=== PATIENT | female | born 2000 | race Caucasian/White ===

== ENCOUNTER 2025-08-18 11:01 | Observation (INO) ==
[2025-08-18] MEDS: SODIUM CHLORIDE 0.9% 1,000 ML IV STA ×2 (11:00→11:29)
--- NOTE | 2025-08-18 11:16 | ED Physician Documentation ---
History of Present Illness Stated complaint Stated Complaint: ABD PX/AMS Chief complaint Chief Complaint: Abd Pain History obtained from History obtained from: Patient and Family History of Present Illness Pain level max: 9 Pain level now: 9 Additonal information Additional information: Patient is a 25-year-old female who presents to the emergency department with sudden onset abdominal pain. She is approximately 9 weeks . She called her who is deployed in [place] and he called a friend to go bring her to the hospital. When the friend arrived she was outside on the concrete on the ground with altered mental status. EMS brought the patient to the emergency department. Adolfo Coma Scale Assess Eye opening: Spontaneous Verbal response: Oriented Motor response: Obeys Commands Review of Systems Status of ROS: unobtainable due to mental status Meds/Allgy Home Medications Ambulatory Orders Medication Instructions Recorded Confirmed ondansetron 4 mg disintegrating 4 mg PO Q8H PRN nausea and 08/18/25 tablet vomiting #10 tabs oxycodone 5 mg tablet 5 mg PO Q6H PRN postoperativ e pain 08/18/25 #10 tabs Allergies Allergies Allergy/AdvReac Type Severity Reaction Status Date / Time No Known Drug Allergies Allergy Verified 08/18/25 11:06 PFSH Active Problems All Active Problems (Updated 08/18/25 @ 17:53 by Anna Strong MD) Postoperative nausea (Acute) Post-op pain (Acute) Hemoperitoneum due to rupture of tubal ectopic (Acute) Ruptured ectopic (Acute) Medical History Medical History (Updated 08/18/25 @ 17:53 by Anna Strong MD) No pertinent past medical history No pertinent past medical history Social History Social History (Updated 08/18/25 @ 13:28 by Kenia Long CRNA) Smoking Status: Never smoker Living arrangement: At home Do you feel safe in your home environment?: Yes History of physical, verbal, emotional, or financial abuse?: No Exam Exam Vital Signs: Vital Signs x48h Temp Pulse Pulse Resp BP BP Pulse Ox 08/18/25 17:30 37.0 C 17 110/65 98 08/18/25 17:00 84 18 111/63 98 08/18/25 16:30 89 18 113/59 L 100 08/18/25 16:02 37.0 C 79 16 105/66 100 08/18/25 15:40 77 16 105/65 08/18/25 15:10 36.7 C 82 20 127/69 100 08/18/25 14:43 36.4 C L 68 13 110/53 L 100 08/18/25 14:30 75 16 104/61 100 08/18/25 14:15 36.2 C L 60 16 110/55 L 100 08/18/25 14:10 36.3 C L 65 14 102/58 L 100 08/18/25 14:00 36.3 C L 66 16 114/57 L 100 08/18/25 13:55 64 18 113/57 L 100 08/18/25 13:50 60 18 111/55 L 100 08/18/25 13:45 58 L 19 114/54 L 100 08/18/25 13:40 36.3 C L 74 16 105/67 100 08/18/25 11:43 75 18 111/60 08/18/25 11:36 77 17 105/65 100 08/18/25 11:32 88 16 111/64 100 08/18/25 11:24 86 16 111/64 08/18/25 11:10 105/69 98 08/18/25 11:06 36.4 C L 85 18 94/66 100 Constitutional pale, cool, slight bleeding from mouth HENMT normocephalic and head/scalp atraumatic slight bleeding from the R nare and the R upper gingiva Eyes PERRL and EOMs intact bilaterally Neck/C-Spine trachea midline Respiratory breath sounds equal bilaterally, normal respiratory effort and clear to auscultation bilaterally Cardiovascular normal heart rate noted and regular rhythm noted Gastrointestinal Diffusely tender to palpation. Positive guarding. Back/Pelvis no thoracic spine tenderness and no lumbar spine tenderness Neurology GCS 15 Patient is GCS 15, but very drowsy, often times questions will have to be repeated before she will give an answer. Skin skin color normal Results Vitals Vitals: Vital Signs - 24 hr 08/18/25 11:06 08/18/25 11:10 08/18/25 11:24 Temperature 36.4 C L Temperature Source Temporal Artery Scan Pulse Rate 85 86 Pulse Rate [Monitoring electrodes] Respiratory Rate 18 16 Blood Pressure 94/66 105/69 111/64 Blood Pressure [Left] O2 Saturation 100 98 O2 Source Room air Room air Room air Sedation scale Pain Intensity 10 10 10 Pain Intensity [Abdomen] 08/18/25 11:32 08/18/25 11:36 08/18/25 11:43 Temperature Temperature Source Pulse Rate 88 77 75 Pulse Rate [Monitoring electrodes] Respiratory Rate 16 17 18 Blood Pressure 111/64 105/65 111/60 Blood Pressure [Left] O2 Saturation 100 100 O2 Source Room air Room air Room air Sedation scale Pain Intensity 10 10 10 Pain Intensity [Abdomen] 08/18/25 11:56 08/18/25 13:40 08/18/25 13:40 Temperature 36.3 C L Temperature Source Pulse Rate 74 Pulse Rate [Monitoring electrodes] Respiratory Rate 16 Blood Pressure 105/67 Blood Pressure [Left] O2 Saturation 100 O2 Source Sedation scale Pain Intensity 10 8 Pain Intensity [Abdomen] 08/18/25 13:45 08/18/25 13:50 08/18/25 13:55 Temperature Temperature Source Pulse Rate 58 L 60 64 Pulse Rate [Monitoring electrodes] Respiratory Rate 19 18 18 Blood Pressure 114/54 L 111/55 L 113/57 L Blood Pressure [Left] O2 Saturation 100 100 100 O2 Source Sedation scale Pain Intensity Pain Intensity [Abdomen] 08/18/25 14:00 08/18/25 14:00 08/18/25 14:10 Temperature 36.3 C L Temperature Source Pulse Rate 66 Pulse Rate [Monitoring electrodes] Respiratory Rate 16 Blood Pressure 114/57 L Blood Pressure [Left] O2 Saturation 100 O2 Source Sedation scale Pain Intensity 8 8 Pain Intensity [Abdomen] 08/18/25 14:10 08/18/25 14:15 08/18/25 14:20 Temperature 36.3 C L 36.2 C L Temperature Source Pulse Rate 65 60 Pulse Rate [Monitoring electrodes] Respiratory Rate 14 16 Blood Pressure 102/58 L 110/55 L Blood Pressure [Left] O2 Saturation 100 100 O2 Source Sedation scale Pain Intensity 8 Pain Intensity [Abdomen] 08/18/25 14:30 08/18/25 14:43 08/18/25 15:10 Temperature 36.4 C L 36.7 C Temperature Source Temporal Artery Scan Pulse Rate 75 68 Pulse Rate [Monitoring electrodes] 82 Respiratory Rate 16 13 20 Blood Pressure 104/61 110/53 L Blood Pressure [Left] 127/69 O2 Saturation 100 100 100 O2 Source Room air Sedation scale 1-Arouses easily Pain Intensity 3 Pain Intensity [Abdomen] 08/18/25 15:40 08/18/25 15:42 08/18/25 16:02 Temperature 37.0 C Temperature Source Temporal Artery Scan Pulse Rate Pulse Rate [Monitoring electrodes] 77 79 Respiratory Rate 16 16 Blood Pressure Blood Pressure [Left] 105/65 105/66 O2 Saturation 100 O2 Source Room air Room air Sedation scale 0-Fully awake 0-Fully awake Pain Intensity 3 Pain Intensity [Abdomen] 3 08/18/25 16:30 08/18/25 17:00 08/18/25 17:23 Temperature Temperature Source Pulse Rate Pulse Rate [Monitoring electrodes] 89 84 Respiratory Rate 18 18 Blood Pressure Blood Pressure [Left] 113/59 L 111/63 O2 Saturation 100 98 O2 Source Room air Room air Sedation scale 0-Fully awake 0-Fully awake Pain Intensity 3 3 3 Pain Intensity [Abdomen] 08/18/25 17:30 08/18/25 17:38 Temperature 37.0 C Temperature Source Temporal Artery Scan Pulse Rate Pulse Rate [Monitoring electrodes] Respiratory Rate 17 Blood Pressure Blood Pressure [Left] 110/65 O2 Saturation 98 O2 Source Sedation scale 0-Fully awake Pain Intensity 8 8 Pain Intensity [Abdomen] Oxygen O2 Source Room air EKG (time done) 1151: EKG releavant findings:: EKG personally interpreted by author of this note. Relevant findings are: Rate: Other (82 bpm. Sinus rhythm. Normal NM interval, normal QRS, normal ST segments. Normal EKG) Labs Labs: Laboratory Tests 08/18/25 08/18/25 08/18/25 11:27 11:35 14:22 WBC 16.7 H 18.7 H RBC 3.26 L 4.17 L Hgb 9.5 L 11.6 L Hct 29.3 L 35.8 L MCV 89.9 85.9 MCH 29.1 27.8 MCHC 32.4 32.4 RDW 12.1 16.4 H Plt Count 322 250 MPV 10.1 10.0 Neut # (Auto) 13.2 H Lymph # (Auto) 2.7 [place] # (Auto) 0.6 Eos # (Auto) 0.0 Baso # (Auto) 0.1 Absolute Nucleated RBC 0.00 Nucleated RBC % 0.0 Sodium 137 136 Potassium 3.2 L 5.1 H Chloride 107 109 Carbon Dioxide 19 L 21 Anion Gap 11.0 6.0 BUN 8 8 Creatinine 0.8 0.7 Estimated GFR (MDRD) 87 L 102 Glucose 115 H 133 H Calcium 8.1 L 7.6 L Total Bilirubin 0.3 0.4 AST 12 13 ALT 8 L 9 L Alkaline Phosphatase 36 L 37 L Total Protein 6.2 L 6.1 L Albumin 3.7 3.6 Globulin 2.5 2.5 Albumin/Globulin Ratio 1.5 1.4 Beta HCG, Quant 74726.6 Blood Type O POSITIVE Blood Type Recheck O POSITIVE Antibody Screen NEGATIVE Crossmatch IS Only See Detail PD Medical Decision Making ED course Complexity details: reviewed results, re-evaluated patient, considered differential and d/w patient ED course: Patient is a 25-year-old female who presents to the emergency department with ab dominal pain, 9 weeks ,. Have likely a syncopal event today at home and fell onto the sidewalk. Has peritoneal signs on her abdomen upon arrival. I immediately placed an ultrasound probe which showed free fluid throughout the abdomen. There also appears to be a left-sided ectopic , uterus identified and the gestational sac appears outside the uterus. At that point OB was called, Dr. Strong, she came and evaluated the patient. IV fluids were given. Head CT, cervical spine CT maxillofacial CT were negative for acute findings. Patient was taken to the operating room. This document was made in part using voice recognition software. While efforts are made to proofread this document, sound alike and grammatical errors may occur. Discharge Plan Discharge Patient Disposition: ED Transfer to [facility] Condition: Serious Clinical Impression: Ruptured ectopic , Hemoperitoneum due to rupture of tubal ectopic Interventions: ED Admission Assessment Last Done: 08/18/25 12:06 Vitals documented within 30 minutes of discharge?: Yes
[2025-08-18] MEDS ORDERED: ROCURONIUM 50 MG/5 ML VIAL ONE ×2 (11:40→12:42)
[2025-08-18] MEDS ORDERED: PROPOFOL 200 MG/20 ML VIAL IVP ONE (11:40)
[2025-08-18] MEDS ORDERED: fentaNYL 100 MCG/2 ML VIAL ONE ×2 (11:40→14:20)
[2025-08-18 11:41] LABS: HCT - HEMATOCRIT 29.3 % (37.0-47.0); HGB - HEMOGLOBIN 9.5 g/dL (12.0-16.0); MEAN PLATELET VOLUME 10.1 fL (7.9-10.8); NRBC ABSOLUTE COUNT (AUTO) 0.00 x10^3/uL; NUCLEATED RED BLOOD CELLS AUTO 0.0 /100WBC; PLT - PLATELET COUNT 322 10^3/uL (130-450); RED CELL DISTRIBUTION WIDTH 12.1 % (12.0-15.0)
--- NOTE | 2025-08-18 11:57 | HISTORY & PHYSICAL EXAMINATION ---
History of Present Illness History of Present Illness HPI Comment/Other: Yessy is a 25 yo who presents to the ED via ambulance after loss of consiousness at home. Bedside ultrasound in the ED consistent with ectopic and hemoperitoneum. Yessy reports + abdominal pain, sudden starting around 9AM this morning. She reports knowing she was with first appointment later this month, has not had any care or ultrasounds so far. Meds/Allgy Home Medications Ambulatory Orders Medication Instructions Recorded Confirmed No Known Home Medications 08/18/2503/07 Allergies Allergies Allergy/AdvReac Type Severity Reaction Status Date / Time No Known Drug Allergies Allergy Verified 08/18/25 11:06 PFSH Active Problems All Active Problems (Updated 08/18/25 @ 11:34 by Zora Melvin, RN, BSN) Hemoperitoneum due to rupture of tubal ectopic (Acute) Ruptured ectopic (Acute) Medical History Medical History (Updated 08/18/25 @ 11:34 by Zora Melvin, RN, BSN) No pertinent past medical history No pertinent past medical history Social History Social History (Updated 08/18/25 @ 11:34 by Zora Melvin, RN, BSN) Living arrangement: At home Do you feel safe in your home environment?: Yes History of physical, verbal, emotional, or financial abuse?: No POLST Patient has POLST: No Exam Exam Vital Signs: Vital Signs x48h Temp Pulse Resp BP Pulse Ox 08/18/25 11:43 75 18 111/60 08/18/25 11:36 77 17 105/65 100 08/18/25 11:32 88 16 111/64 100 08/18/25 11:24 86 16 111/64 08/18/25 11:10 105/69 98 08/18/25 11:06 97.5 F L 85 18 94/66 100 Constitutional Alert, cervical collar in place. Dried blood around mouth. No active bleeding. Respiratory normal respiratory effort Gastrointestinal distended, tender to palpation with + rebound/guarding. Genitourinary Deferred Psychiatry cooperative Conclusion/Plan Problem List (1) Hemoperitoneum due to rupture of tubal ectopic : (2) Ruptured ectopic : Plan - I discussed findings on bedside ultrasound with Yessy with suspected left ectopic and positive hemoperiteoneum, concerning for ruptured ectopic . Recommended that we proceed with diagnostic laparoscopy, removal of ectopic , possible unilateral salpignectomy. Risks/benefits included risks of nontreatment were reviewed. Risks of surgery discussed including pain, bleeding (possibly requiring a blood transfusion), infection, damage to nearby structures (including but not limited to bowel, bladder, ureters, blood vessels), conversion to open procedure with larger abdominal incision, . Consent was signed. With Yessy's permission, her was updated on her status and plan via phone call - he is currently in [place]. Lab Results Lab results reviewed: Yes 08/18/25 11:27
[2025-08-18 11:58] LABS: ALT ALANINE AMINOTRANSFERASE 8.0 IU/L (10-60); AST ASPARTATE AMINOTRANSFERASE 12.0 IU/L (10-42); BUN - BLOOD UREA NITROGEN 8.0 mg/dL (6-20); CARBON DIOXIDE - CO2 19.0 mmol/L (21-32); CREATININE 0.8 mg/dL (0.6-1.3); GFR - MDRD 87.0 (>89)
--- NOTE | 2025-08-18 12:02 | CT Report ---
PROCEDURE: CT Head WO INDICATIONS: syncope, head inury TECHNIQUE: CT of the head was performed, without intravenous contrast. Reformats: Coronal and sagittal. For radiation dose reduction, the following was used: automated exposure control, adjustment of mA and/or kV according to patient size. COMPARISON: None. FINDINGS: Image quality: Diagnostic. CSF spaces: Basal cisterns are patent. No extra-axial fluid collections. Ventricles are normal in size and shape. Brain: No midline shift. No intracranial mass effect or hemorrhage. [place]- white matter interface is normal. Skull and face: Calvarium and visualized facial bones are intact, without suspicious lesions. Sinuses: Visualized sinuses and mastoids are clear. IMPRESSION: No acute intracranial pathology. Reviewed by: Piero Cervantes MD on 08/18/2025 11:59 AM [facility] Approved by: Piero Cervantes MD on 08/18/2025 11:59 AM [facility] Station ID: [id number]
--- NOTE | 2025-08-18 12:02 | CT Report ---
PROCEDURE: CT Maxillofacial WO INDICATIONS: syncope, facial pain TECHNIQUE: CT of the face was performed, without intravenous contrast. Reformats: Coronal and sagittal. For radiation dose reduction, the following was used: automated exposure control, adjustment of mA and/or kV according to patient size. COMPARISON: None. FINDINGS: Image quality: Diagnostic. Soft tissues: No edema, masses, or fluid collections. No enlarged lymph nodes. Vascular: Visualized vascular structures appear patent throughout. Bony vascular foramina and canals appear normal. Bones: Facial bones appear intact, without fractures, erosions, or destruction. Visualized portions of the skull base and auditory canals also appear normal. Sinuses: Mild mucosal thickening in inferior portion of right maxillary sinus is seen. Rest of the sinuses are aerated without fluid levels, mucosal thickening, or mucoceles. Mastoid air cells are aerated. IMPRESSION: 1. No acute facial bone fracture. 2. Mild right maxillary sinus mucosal thickening. 3. No gross facial soft tissue abnormalities. 4. Bilateral orbital andrew and orbital globes are intact. Reviewed by: Piero Cervantes MD on 08/18/2025 11:59 AM [facility] Approved by: Piero Cervantes MD on 08/18/2025 11:59 AM PST Station ID: [id number]
--- NOTE | 2025-08-18 12:03 | CT Report ---
PROCEDURE: CT Cervical Spine WO INDICATIONS: syncope, neck pain TECHNIQUE: Noncontrast images acquired from the skull base to the T4 level. Sagittal and coronal reformats were then constructed. For radiation dose reduction, the following was used: automated exposure control, adjustment of mA and/or kV according to patient size. COMPARISON: None. FINDINGS: Image quality: Excellent. Bones: No fractures or dislocations. Visualized superior ribs are intact. Soft tissues: Prevertebral soft tissues are normal in thickness. No paravertebral hematomas. No apical pneumothoraxes. IMPRESSION: No acute, displaced fracture or traumatic subluxation. Reviewed by: Piero Cervantes MD on 08/18/2025 12:00 PM [facility] Approved by: Piero Cervantes MD on 08/18/2025 12:00 PM [facility] Station ID: [id number]
[2025-08-18] MEDS ORDERED: GABAPENTIN 400 MG CAPSULE PO ONE (12:35)
[2025-08-18] MEDS ORDERED: DEXAMETHASONE 4 MG/ML VIAL ONE (13:07)
[2025-08-18] MEDS ORDERED: ONDANSETRON 4 MG/2 ML VIAL ONE (13:07)
[2025-08-18] MEDS ORDERED: SUGAMMADEX 200 MG/2 ML VIAL IVP ONE (13:23)
[2025-08-18] MEDS ORDERED: ACETAMINOPHEN 1,000 MG/100 ML 1,000 MG/100 ML BAG IV ONE (13:25)
--- NOTE | 2025-08-18 13:28 | ANESTHESIA PROCEDURE NOTE ---
Pre-Anesthesia VS, & Labs Diagnosis Surgical Diagnosis:: Ruptured ectopic Procedure Procedure: Diagnostic laparoscopy, salpingectomy Vitals Vital Signs: Temp Pulse Resp BP Pulse Ox 36.4 C L 75 18 111/60 100 08/18/25 11:06 08/18/25 11:43 08/18/25 11:43 08/18/25 11:43 08/18/25 11:36 NPO NPO: >8 hours Is Patient ?: Yes Lab Results Current Lab Results: Laboratory Tests 08/18/25 11:35: Blood Type O POSITIVE, Antibody Screen NEGATIVE, Crossmatch IS Only See Detail 08/18/25 11:27: WBC 16.7 H, RBC 3.26 L, Hgb 9.5 L, Hct 29.3 L, MCV 89.9, MCH 29.1, MCHC 32.4, RDW 12.1, Plt Count 322, MPV 10.1, Neut # (Auto) 13.2 H, Lymph # (Auto) 2.7, [place] # (Auto) 0.6, Eos # (Auto) 0.0, Baso # (Auto) 0.1, Absolute Nucleated RBC 0.00, Nucleated RBC % 0.0, Sodium 137, Potassium 3.2 L, Chloride 107, Carbon Dioxide 19 L, Anion Gap 11.0, BUN 8, Creatinine 0.8, Estimated GFR (MDRD) 87 L, Glucose 115 H, Calcium 8.1 L, Total Bilirubin 0.3, AST 12, ALT 8 L, Alkaline Phosphatase 36 L, Total Protein 6.2 L, Albumin 3.7, Globulin 2.5, Albumin/Globulin Ratio 1.5, Beta HCG, Quant 01371.6, Blood Type Recheck O POSITIVE Lab results reviewed: Yes 08/18/25 11:27 08/18/25 11:27 Meds/Allgy Home Medications Ambulatory Orders Medication Instructions Recorded Confirmed No Known Home Medications 08/18/2503/07 Allergies Allergies Allergy/AdvReac Type Severity Reaction Status Date / Time No Known Drug Allergies Allergy Verified 08/18/25 11:06 PFSH Active Problems All Active Problems (Updated 08/18/25 @ 11:34 by Zora Melvin, RN, BSN) Hemoperitoneum due to rupture of tubal ectopic (Acute) Ruptured ectopic (Acute) Medical History Medical History (Updated 08/18/25 @ 11:34 by Zora Melvin, RN, BSN) No pertinent past medical history No pertinent past medical history Social History Social History (Updated 08/18/25 @ 11:34 by Zora Melvin, RN, BSN) Smoking Status: Never smoker Living arrangement: At home Do you feel safe in your home environment?: Yes History of physical, verbal, emotional, or financial abuse?: No POLST Patient has POLST: No POLST CPR Status: Attempt Resuscitation (CPR) Level of Medical Intervention: Full Treatment Anesthesia Exam (Expanded) Exam General: Oriented x3, Cooperative and Mild distress Dental: 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 (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, 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
--- NOTE | 2025-08-18 13:28 | OPERATIVE REPORT ---
Operative Report General Procedure Data: Operation Date: 08/18/25 12:15 Proposed Procedures p Exploratory Laparotomy(Not Applicable) - Anna Strong MD Actual Procedures p LAPAROSCOPIC LEFT SALPHINGECTOMY(Not Applicable) - Anna Strong MD Pre-Op Diagnosis: RUPTURED ECTOPIC , HEMOPERITONEUM Anesthesia Type General Case Staff Anesthesia Provider: Kenia Long Assisting Provider: Faith Garcia Case Times Procedure Start: 08/18/25 12:11 Procedure End: 08/18/25 13:23 Time out: 08/18/25 12:10 Other Other Information/Narrative: OPERATIVE REPORT Date of procedure: 08/18/25 Surgeon: Anna Strong MD Assistants: MD Dr. Jose Monaco was necessary as an trust administrative assistant for the entire procedure for adequate retraction and visualization, to shorten operative time, and to lower the risk of surgical injury. Pre-Op Diagnosis: Ruptured ectopic , hemoperitoneum Post-Op Diagnosis: Same Procedures: Laparoscopic left salpingectomy Findings: - On speculum exam, NEFG, normal appearing vaginal mucosa and cervix. - On laparoscopy, large volume hemoperitoneum of 1350cc. Large round dilation of the proximal left fallopian tube which was actively bleeding, suspect ruptured left tubal ectopic . Uterus, bilateral ovaries, and right fallopian tube were normal in appearance. Liver with smooth edge. Appendix not visualized. Specimens: left fallopian tube Anesthesia Technique: general Estimated Blood Loss: 50cc intraoperatively Blood Replacement: 2 units pRBCs Fluid Replacement: 1300cc Drains: kinsey catheter, drained 400cc of clear yellow urine, removed at completion of procedure. Complications: none Condition: stable Description of Procedure Once adequate general anesthesia was obtained, the patient was placed in the dorsolithotomy position with arms tucked and prepped and draped in the usual fashion. Kinsey catheter was placed by the RN. A speculum was inserted into the vagina and the anterior lip of the cervix grasped with a tenaculum. An acorn uterine manipulator was placed. Gloves were changed. 0.25% Marcaine with epinephrine was injected prior to all skin incisions. A horizontal skin incision was made above the umbilicus. The abdominal wall was elevated and the 5 mm trocar with the 5 mm laparoscopic camera was introduced into the abdomen. Two additional 5mm ports were placed under direct visualization in the left and right lower quadrants. Hemoperitoneum was evac uated and the above findings were observed. The left fallopian tube was transected at its junction at the uterus and the ectopic /proximal portion of the tube was removed with the Ligasure to achieve hemostasis. The remaining fimbreated end of the tube was removed with the ligasure. The skin incision of the left lower quandrant port site was extended and a 12mm trocar placed under direct visualization. The specimen was placed in an endocatch bag and removed from the abdomen under direct visualization. The areas of dissection were examined and hemostasis noted. The remaining blood and clot was removed from the abdomen. The left lower quadrant trocar was removed and the fascia closed using the fascia closed using the Lanre-Davis fascial closure device. The gas was all owed to escape the abdomen and the remaining trocars were removed. The skin incisions were closed with 4-0 monocryl in a subcuticular fashion followed by Dermabond. The acorn uterine manipulator was removed intact and hemostasis noted. The kinsey catheter was removed. The patient was awakened and taken to the recovery room in good condition. Anna Strong MD
[2025-08-18] MEDS ORDERED: HYDROmorphone 0.5 MG/0.5 ML SYRINGE ONE ×2 (13:39→13:57)
[2025-08-18] MEDS: HYDROmorphone 0.5 MG/0.5 ML SYRINGE IVP PRN (13:40)
[2025-08-18] MEDS ORDERED: KETOROLAC 15 MG/ML VIAL ONE (13:57)
[2025-08-18] MEDS: KETOROLAC 15 MG/ML VIAL IVP ONE (14:00)
[2025-08-18] MEDS ORDERED: NALOXONE 0.4 MG/ML VIAL IVP PRN (14:05)
[2025-08-18] MEDS ORDERED: ePHEDrine 50 MG/ML VIAL IVP PRN (14:05)
[2025-08-18] MEDS ORDERED: METOCLOPRAMIDE 10 MG/2 ML VIAL IVP PRN (14:05)
[2025-08-18] MEDS ORDERED: MORPHINE 2 MG/ML CARPUJECT IVP PRN (14:05)
[2025-08-18] MEDS ORDERED: ONDANSETRON 4 MG/2 ML VIAL IVP PRN (14:05)
[2025-08-18] MEDS ORDERED: ATROPINE ABBOJECT 1 MG/10 ML SYRINGE IVP PRN (14:05)
[2025-08-18] MEDS: LACTATED RINGERS 1,000 ML IV PRN (14:10)
--- NOTE | 2025-08-18 14:11 | ANESTHESIA POST OP EVALUATION ---
Anesthesia Post Eval Post Anesthesia Eval Vitals: Last Vital Signs Temp 36.3 C L 08/18/25 13:40 Pulse 66 08/18/25 14:00 Resp 16 08/18/25 14:00 BP 114/57 L 08/18/25 14:00 Pulse Ox 100 08/18/25 14:00 CV Function Including HR & BP: Stable Pain Control: Satisfactory Nausea & Vomiting: Negative Mental Status: Baseline Respiratory Status: Airway Patent Hydration Status: Satisfactory Anesthesia Complications: None
[2025-08-18] MEDS ORDERED: HYDROmorphone 0.5 MG/0.5 ML SYRINGE IVP PRN (14:16)
[2025-08-18] MEDS: fentaNYL 100 MCG/2 ML VIAL IVP PRN (14:20)
[2025-08-18 14:28] LABS: HCT - HEMATOCRIT 35.8 % (37.0-47.0); HGB - HEMOGLOBIN 11.6 g/dL (12.0-16.0); MEAN PLATELET VOLUME 10.0 fL (7.9-10.8); PLT - PLATELET COUNT 250.0 10^3/uL (130-450); RED CELL DISTRIBUTION WIDTH 16.4 % (12.0-15.0)
[2025-08-18 14:42] LABS: ALT ALANINE AMINOTRANSFERASE 9.0 IU/L (10-60); AST ASPARTATE AMINOTRANSFERASE 13.0 IU/L (10-42); BUN - BLOOD UREA NITROGEN 8.0 mg/dL (6-20); CARBON DIOXIDE - CO2 21.0 mmol/L (21-32); CREATININE 0.7 mg/dL (0.6-1.3); GFR - MDRD 102.0 (>89)
[2025-08-18] MEDS ORDERED: LACTATED RINGERS 1,000 ML IV SCH (15:00)
[2025-08-18] MEDS: ONDANSETRON 4 MG/2 ML VIAL IVP PRN (17:03)
[2025-08-18] MEDS: ACETAMINOPHEN 500 MG TABLET PO ONE (17:23)
[2025-08-18] MEDS: oxyCODONE 5 MG TABLET PO PRN (17:38)
--- NOTE | 2025-08-18 19:11 | PROVIDER PROGRESS NOTE ---
Subjective Prog Note Date Prog Note Date: 08/18/25 Prog Note Time: 19:06 Subjective Subjective: Yessy was seen at bedside this evening. Pain at 3/10 while lying in bed, but when sitting forward very uncomfortable. She has wanted to avoid oxycodone as she is afraid it will make her sleepy. She has not yet been out of bed to ambulate. Woule like to try to eat something. [place] [email or web address]. Current Medications Current Medications Current Medications: Current Medications Generic Name Dose Route Start Last Admin Trade Name Freq PRN Reason Stop Dose Admin Acetaminophen 1,000 mg 08/18/25 18:56 Acetaminophen 500 Mg Tablet PO Q6H PRN Moderate Pain (Level 4-6) Gabapentin 400 mg 08/18/25 19:01 Gabapentin 400 Mg Capsule PO TID PRN postoperative pain Hydromorphone HCl 0.5 mg 08/18/25 14:16 Hydromorphone 0.5 Mg/0.5 Ml Syringe IVP Q30M PRN Severe Breakthrough pain(7-10) Lactated Ringer's 1,000 mls @ 0 mls/hr 08/18/25 12:35 08/18/25 14:10 Lr IV 100 mls/hr .Q0M PRN Administration preop TKO Ibuprofen 600 mg 08/18/25 18:56 Ibuprofen 600 Mg Tablet PO Q6HR PRN Moderate Pain (Level 4-6) Ondansetron HCl 4 mg 08/18/25 14:16 08/18/25 17:03 Ondansetron 4 Mg/2 Ml Vial IVP 4 mg Q6HR PRN Administration Nausea / Vomiting Oxycodone HCl 5 - 10 mg 08/18/25 14:16 08/18/25 17:38 Oxycodone 5 Mg Tablet PO 5 mg Q4HR PRN Administration Moderate Pain (Level 4-6) Objective Vital Signs/Intake & Output Vital Signs: Vital Signs x48h Temp Pulse Pulse Resp BP BP Pulse Ox 08/18/25 17:30 98.6 F 17 110/65 98 08/18/25 17:00 84 18 111/63 98 08/18/25 16:30 89 18 113/59 L 100 08/18/25 16:02 98.6 F 79 16 105/66 100 08/18/25 15:40 77 16 105/65 08/18/25 15:10 98.1 F 82 20 127/69 100 08/18/25 14:43 97.5 F L 68 13 110/53 L 100 08/18/25 14:30 75 16 104/61 100 08/18/25 14:15 97.2 F L 60 16 110/55 L 100 08/18/25 14:10 97.3 F L 65 14 102/58 L 100 08/18/25 14:00 97.3 F L 66 16 114/57 L 100 08/18/25 13:55 64 18 113/57 L 100 08/18/25 13:50 60 18 111/55 L 100 08/18/25 13:45 58 L 19 114/54 L 100 08/18/25 13:40 97.3 F L 74 16 105/67 100 08/18/25 11:43 75 18 111/60 08/18/25 11:36 77 17 105/65 100 08/18/25 11:32 88 16 111/64 100 08/18/25 11:24 86 16 111/64 08/18/25 11:10 105/69 98 Intake & Output: Intake & Output 08/15/25 08/16/25 08/17/25 08/18/25 22:59 23:59 23:59 23:59 Intake Total 7460 / 7460 Output Total 800 / 800 Balance 6660 / 6660 Weight (kg) 155 lb 13.869 oz Objective Comments/Other: Gen: NAD, lying in bed. CV: RRR Resp: CTAB Abd: non-distended, TTP. No rebound/guarding. Laparoscopic incisions with dermabond in place. Ext: no LE edema, SCDs in place. Lab Results 08/18/25 14:22 08/18/25 14:22 Other Labs: Lab Results x24hrs 08/18/25 08/18/25 08/18/25 Range/Units 14:22 11:35 11:27 WBC 18.7 H 16.7 H (4.8-10.8) x10^3/uL RBC 4.17 L 3.26 L (4.20-5.40) 10^6/uL Hgb 11.6 L 9.5 L (12.0-16.0) g/dL Hct 35.8 L 29.3 L (37.0-47.0) % MCV 85.9 89.9 (81.0-99.0) fL MCH 27.8 29.1 (27.0-31.0) pg MCHC 32.4 32.4 (32.0-36.0) g/dL RDW 16.4 H 12.1 (12.0-15.0) % Plt Count 250 322 (130-450) 10^3/uL MPV 10.0 10.1 (7.9-10.8) fL Neut # (Auto) 13.2 H (1.5-6.6) 10^3/uL Lymph # (Auto) 2.7 (1.5-3.5) 10^3/uL Powell # (Auto) 0.6 (0.0-1.0) 10^3/uL Eos # (Auto) 0.0 (0.0-0.7) 10^3/uL Baso # (Auto) 0.1 (0.0-0.1) 10^3/uL Absolute Nucleated RBC 0.00 x10^3/uL Nucleated RBC % 0.0 /100WBC Sodium 136 137 (135-145) mmol/L Potassium 5.1 H 3.2 L (3.5-4.5) mmol/L Chloride 109 107 (101-111) mmol/L Carbon Dioxide 21 19 L (21-32) mmol/L Anion Gap 6.0 11.0 (6-13) BUN 8 8 (6-20) mg/dL Creatinine 0.7 0.8 (0.6-1.3) mg/dL Estimated GFR (MDRD) 102 87 L (>89) Glucose 133 H 115 H (74-104) mg/dL Calcium 7.6 L 8.1 L (8.5-10.3) mg/dL Total Bilirubin 0.4 0.3 (0.2-1.0) mg/dL AST 13 12 (10-42) IU/L ALT 9 L 8 L (10-60) IU/L Alkaline Phosphatase 37 L 36 L (42-121) IU/L Total Protein 6.1 L 6.2 L (6.4-8.9) g/dL Albumin 3.6 3.7 (3.2-5.5) g/dL Globulin 2.5 2.5 (2.1-4.2) g/dL Albumin/Globulin Ratio 1.4 1.5 (1.0-2.2) Beta HCG, Quant 90727.6 mIU/mL Blood Type O POSITIVE Blood Type Recheck O POSITIVE Antibody Screen NEGATIVE Crossmatch IS Only See Detail Assessment/Plan Problem List (1) Post-op pain: Impression: I discussed with Yessy possible discharge home this evening versus tomorrow. She has not taken any narcotic postoperatively today and is having significant discomfort with movement this evening and desires to stay overnight for pain control. Will plan alternating tylenol/motrin as oxycodone as needed tonight - encouraged her to use the oxycodone if needed. Gabapentin added as well. We discussed intraoperative findings and reviewed photos. She received 2units pRBCs intraoperatively with good rise in Hgb. Will plan to repeat CBC in the morning. Anticipate discharge home tomorrow. (2) Hemoperitoneum due to rupture of tubal ectopic : (3) Ruptured ectopic :
[2025-08-18] MEDS: IBUPROFEN 600 MG TABLET PO PRN (19:38)
[2025-08-18] MEDS: ACETAMINOPHEN 500 MG TABLET PO PRN (19:38)
[2025-08-18] MEDS: GABAPENTIN 400 MG CAPSULE PO PRN (19:39)
[2025-08-18] MEDS: SIMETHICONE CHEW 80 MG TABLET PO SCH (23:35)
[2025-08-19 06:24] LABS: HCT - HEMATOCRIT 26.1 % (37.0-47.0); HGB - HEMOGLOBIN 8.4 g/dL (12.0-16.0); MEAN PLATELET VOLUME 10.0 fL (7.9-10.8); NRBC ABSOLUTE COUNT (AUTO) 0.00 x10^3/uL; NUCLEATED RED BLOOD CELLS AUTO 0.0 /100WBC; PLT - PLATELET COUNT 227 10^3/uL (130-450); RED CELL DISTRIBUTION WIDTH 16.9 % (12.0-15.0)
--- NOTE | 2025-08-19 09:19 | PROVIDER PROGRESS NOTE ---
Subjective Prog Note Date Prog Note Date: 08/19/25 Prog Note Time: 09:16 Subjective Subjective: Yessy seen at bedside at multiple times throughout the day. Reports overall feeling much better today. arrived from [place] around 1am and is at bedside. She feels that her pain is better controlled then it was last evening, but still struggling to get up and out of bed, requiring assistance. Feels that she can take a deep breath in and out now which was very painful last evening. Denies CP, SOB. She is having some lightheadedness, while lying in bed and when up. Worse after administration of 10mg oxycodone this afternoon. Only slight spotting when she wipes. No N/V, tolerating regular diet, and is passing flatus. She is nervous about having her first BM. Early this evening, I discussed discharge with Yessy. Encouraged her to try to ambulate around the room, and if still requiring significant assistance, would recommend she stay overnight. She has only ambulated to the bathroom twice today and per RN needed signifcant assitance from RN and her spouse. Current Medications Current Medications Current Medications: Current Medications Generic Name Dose Route Start Last Admin Trade Name Freq PRN Reason Stop Dose Admin Acetaminophen 1,000 mg 08/18/25 18:56 08/19/25 07:32 Acetaminophen 500 Mg Tablet PO 1,000 mg Q6H PRN Administration Moderate Pain (Level 4-6) Gabapentin 400 mg 08/18/25 19:01 08/19/25 03:26 Gabapentin 400 Mg Capsule PO 400 mg TID PRN Administration postoperative pain Hydromorphone HCl 0.5 mg 08/18/25 14:16 Hydromorphone 0.5 Mg/0.5 Ml Syringe IVP Q30M PRN Severe Breakthrough pain(7-10) Hydroxyzine Pamoate 25 mg 08/18/25 22:36 08/18/25 23:35 Hydroxyzine Pamoate 25 Mg Capsule PO 25 mg Q6H PRN Administration Anxiety Lactated Ringer's 1,000 mls @ 0 mls/hr 08/18/25 12:35 08/18/25 14:10 Lr IV 100 mls/hr .Q0M PRN Administration preop TKO Ibuprofen 600 mg 08/18/25 18:56 08/19/25 07:32 Ibuprofen 600 Mg Tablet PO 600 mg Q6HR PRN Administration Moderate Pain (Level 4-6) Ondansetron HCl 4 mg 08/18/25 14:16 08/18/25 17:03 Ondansetron 4 Mg/2 Ml Vial IVP 4 mg Q6HR PRN Administration Nausea / Vomiting Oxycodone HCl 5 - 10 mg 08/18/25 14:16 08/19/25 06:17 Oxycodone 5 Mg Tablet PO 10 mg Q4HR PRN Administration Moderate Pain (Level 4-6) Simethicone 80 mg 08/18/25 23:00 08/19/25 06:17 Simethicone Chew 80 Mg Tablet PO 80 mg QID JULIAN Administration Objective Vital Signs/Intake & Output Vital Signs: Vital Signs x48h Temp Pulse Resp BP Pulse Ox 08/19/25 08:00 99.1 F 75 16 113/59 L 99 08/19/25 06:15 99.3 F 72 16 114/59 L 98 08/19/25 03:15 99.3 F 82 15 101/54 L 98 08/19/25 02:00 99.3 F 77 15 113/54 L Intake & Output: Intake & Output 08/16/25 08/17/25 08/18/25 08/19/25 23:59 23:59 23:59 23:59 Intake Total 7460 / 7460 Output Total 1500 / 1500 Balance 5960 / 5960 Weight (kg) 155 lb 13.869 oz Objective Comments/Other: Gen: NAD, generally appears better then then evening prior. CV: RRR Resp: CTAB, no crackles Abd: soft, mildly distended, TTP throughout, no rebound/guarding. + BS. Incisions clean and dry with dermabond. Ext: SCDs in place Lab Results 08/19/25 10:05 08/19/25 10:05 Other Labs: Lab Results x24hrs 08/19/25 08/18/25 08/18/25 Range/Units 06:15 14:22 11:35 WBC 8.0 18.7 H (4.8-10.8) x10^3/uL RBC 3.14 L 4.17 L (4.20-5.40) 10^6/uL Hgb 8.4 L 11.6 L (12.0-16.0) g/dL Hct 26.1 L 35.8 L (37.0-47.0) % MCV 83.1 85.9 (81.0-99.0) fL MCH 26.8 L 27.8 (27.0-31.0) pg MCHC 32.2 32.4 (32.0-36.0) g/dL RDW 16.9 H 16.4 H (12.0-15.0) % Plt Count 227 250 (130-450) 10^3/uL MPV 10.0 10.0 (7.9-10.8) fL Neut # (Auto) 5.6 (1.5-6.6) 10^3/uL Lymph # (Auto) 1.8 (1.5-3.5) 10^3/uL Bowman # (Auto) 0.6 (0.0-1.0) 10^3/uL Eos # (Auto) 0.0 (0.0-0.7) 10^3/uL Baso # (Auto) 0.0 (0.0-0.1) 10^3/uL Absolute Nucleated RBC 0.00 x10^3/uL Nucleated RBC % 0.0 /100WBC Sodium 136 (135-145) mmol/L Potassium 5.1 H (3.5-4.5) mmol/L Chloride 109 (101-111) mmol/L Carbon Dioxide 21 (21-32) mmol/L Anion Gap 6.0 (6-13) BUN 8 (6-20) mg/dL Creatinine 0.7 (0.6-1.3) mg/dL Estimated GFR (MDRD) 102 (>89) Glucose 133 H (74-104) mg/dL Calcium 7.6 L (8.5-10.3) mg/dL Total Bilirubin 0.4 (0.2-1.0) mg/dL AST 13 (10-42) IU/L ALT 9 L (10-60) IU/L Alkaline Phosphatase 37 L (42-121) IU/L Total Protein 6.1 L (6.4-8.9) g/dL Albumin 3.6 (3.2-5.5) g/dL Globulin 2.5 (2.1-4.2) g/dL Albumin/Globulin Ratio 1.4 (1.0-2.2) Beta HCG, Quant mIU/mL Blood Type O POSITIVE Blood Type Recheck Antibody Screen NEGATIVE Crossmatch IS Only See Detail 08/18/25 Range/Units 11:27 WBC 16.7 H (4.8-10.8) x10^3/uL RBC 3.26 L (4.20-5.40) 10^6/uL Hgb 9.5 L (12.0-16.0) g/dL Hct 29.3 L (37.0-47.0) % MCV 89.9 (81.0-99.0) fL MCH 29.1 (27.0-31.0) pg MCHC 32.4 (32.0-36.0) g/dL RDW 12.1 (12.0-15.0) % Plt Count 322 (130-450) 10^3/uL MPV 10.1 (7.9-10.8) fL Neut # (Auto) 13.2 H (1.5-6.6) 10^3/uL Lymph # (Auto) 2.7 (1.5-3.5) 10^3/uL Bowman # (Auto) 0.6 (0.0-1.0) 10^3/uL Eos # (Auto) 0.0 (0.0-0.7) 10^3/uL Baso # (Auto) 0.1 (0.0-0.1) 10^3/uL Absolute Nucleated RBC 0.00 x10^3/uL Nucleated RBC % 0.0 /100WBC Sodium 137 (135-145) mmol/L Potassium 3.2 L (3.5-4.5) mmol/L Chloride 107 (101-111) mmol/L Carbon Dioxide 19 L (21-32) mmol/L Anion Gap 11.0 (6-13) BUN 8 (6-20) mg/dL Creatinine 0.8 (0.6-1.3) mg/dL Estimated GFR (MDRD) 87 L (>89) Glucose 115 H (74-104) mg/dL Calcium 8.1 L (8.5-10.3) mg/dL Total Bilirubin 0.3 (0.2-1.0) mg/dL AST 12 (10-42) IU/L ALT 8 L (10-60) IU/L Alkaline Phosphatase 36 L (42-121) IU/L Total Protein 6.2 L (6.4-8.9) g/dL Albumin 3.7 (3.2-5.5) g/dL Globulin 2.5 (2.1-4.2) g/dL Albumin/Globulin Ratio 1.5 (1.0-2.2) Beta HCG, Quant 36451.6 mIU/mL Blood Type Blood Type Recheck O POSITIVE Antibody Screen Crossmatch IS Only Assessment/Plan Problem List (1) Post-op pain: Impression: Improved pain control today, however, still struggling to ambulate without significant assistance. Also with lightheadedness, possibly due to pain medications versus acute blood loss anemia. She did have a drop in her Hgb this morning, but repeated 4 hours later is stable - suspect was equilibration from significant blood loss and transfusion yesterday. I think that yesterday after surgery, we got behind on her pain control, but pain is better managed today. Recommended that we reduce her oxycodone to 5mg (from 10mg), and hold the gabapentin if possible to see if lighteadedness improves. Can consider another unit of blood tomorrow if still having significant lightheadedness. (2) Hemoperitoneum due to rupture of tubal ectopic : (3) Ruptured ectopic : (4) Anemia associated with acute blood loss:
[2025-08-19 10:10] LABS: HCT - HEMATOCRIT 27.0 % (37.0-47.0); HGB - HEMOGLOBIN 8.9 g/dL (12.0-16.0); MEAN PLATELET VOLUME 9.5 fL (7.9-10.8); PLT - PLATELET COUNT 229.0 10^3/uL (130-450); RED CELL DISTRIBUTION WIDTH 16.9 % (12.0-15.0)
[2025-08-19 10:23] LABS: ALT ALANINE AMINOTRANSFERASE 8.0 IU/L (10-60); AST ASPARTATE AMINOTRANSFERASE 11.0 IU/L (10-42); BUN - BLOOD UREA NITROGEN 6.0 mg/dL (6-20); CARBON DIOXIDE - CO2 23.0 mmol/L (21-32); CREATININE 0.7 mg/dL (0.6-1.3); GFR - MDRD 102.0 (>89)
--- NOTE | 2025-08-19 11:34 | PHARMACY PROGRESS NOTE ---
Best Possible Medication History Admit Date and Time: 08/18/25 1854 Home Medications Medication Instructions Recorded Confirmed Type ondansetron 4 mg disintegrating 4 mg PO Q8H PRN nausea and 08/18/25 Rx tablet vomiting #10 tabs oxycodone 5 mg tablet 5 mg PO Q6H PRN postoperativ e pain 08/18/25 Rx #10 tabs vit no.95-ferrous 1 tab PO DAILY 08/19/2504/07 History fumarate 28 mg-folic acid 800 mcg tablet () Processed by: Pharmacy Medications reviewed in ED?: No Medication History completed: Yes Patient Interview: Completed Secondary Source(s): Physician records, Pharmacy records and Insurance records [facility] Statement: As the person ultimately responsible for medication therapy, providers are able to order a medication from an existing home medication list in [facility] via the "Reconcile Routine" prior to Confirmation of that medication by technical support associate. Such practice is discouraged except when the physician, in their clinical judgment, deems that a medical need exists for a medication without regard to previous use.
[2025-08-19] MEDS: DOCUSATE SODIUM 100 MG CAPSULE PO SCH (22:02)
[2025-08-20 05:24] LABS: HCT - HEMATOCRIT 25.8 % (37.0-47.0); HGB - HEMOGLOBIN 8.6 g/dL (12.0-16.0); MEAN PLATELET VOLUME 9.6 fL (7.9-10.8); PLT - PLATELET COUNT 202.0 10^3/uL (130-450); RED CELL DISTRIBUTION WIDTH 17.0 % (12.0-15.0)
--- NOTE | 2025-08-20 08:47 | Discharge Summary ---
Discharge Summary Admit Date: 08/18/25 Discharge Date: 08/20/25 Discharging Provider: Anna Strong MD HOSPITAL COURSE Hospital Course: Admission Diagnosis: - Suspected ruptured ectopic - Hemoperitoneum Discharge Diagnosis: - Same - S/p laparoscopic left salpigectomy, evacuation of hemoperitoneum - Acute blood loss anemia Procedures: Laparoscopic left salpingectomy. Hospital Course: Yessy is a 25 yo who was brought to the ED via ambulation after LOC at home with severe pain. She had a known positive test but had not yet had care appointment. ED physician quickly performed bedside US and saw left adnexal gestational sac and significant hemoperitoneum. She was taken to the OR and underwent laparoscopic left salpingectomy with findings of ruptured left proximal tube ectopic and 1350cc hemoperineum. In the OR, she received 2 units of pRBCs. Her postoperative course was complicated by difficult pain control. Today, she is meeting postoperative milestones, pain is well controlled, and she feels comfortable with discharge home. Condition on Discharge: SUBJECTIVE: POD#2. Yessy reports that she feels much better this morning. She was able to take a shower last night and has been able to ambulate better around the room. Feels that her pain is overall well controlled on her current regimen. She is tolerating regular diet and passing flatus, no nausea or vomiting. Her will be able to stay with her to help with recovery. She reports that the lightheadedness she was experiecing has resolved, and denies CP, SOB. Abdominal binder is also helping with the pain. OBJECTIVE: Vital signs reviewed, BPs are lower this morning but she is asymptomatic and blood counts are stable. GENERAL: NAD CHEST: non labored respirations ABD: soft, non-distended, appropriately TTP. laparoscopic incisions with dermabond in place, clean and dry. EXT: no lower extremity edema; No evidence of DVT LAB & IMAGING STUDIES: Updated CBC this morning stable., Hgb 8.6. PLAN: Plan for discharge home with follow up in clinic in 1 week. We reviewed postoperative activity restrictions and home medications. Discussed warning signs to watch for at home (systemic and lcoal signs of infection, severe worsening pain, anemia precautions). . ALLERGIES Allergies Allergy/AdvReac Type Severity Reaction Status Date / Time No Known Drug Allergies Allergy Verified 08/18/25 11:06 MEDICATIONS Ambulatory Orders Medication Instructions Recorded Confirmed ondansetron 4 mg disintegrating 4 mg PO Q8H PRN nausea and 08/18/25 tablet vomiting #10 tabs oxycodone 5 mg tablet 5 mg PO Q6H PRN postoperativ e pain 08/18/25 #10 tabs oxycodone 5 mg tablet 5 mg PO Q4H PRN pain #20 tab s 08/19/25 vit no.95-ferrous 1 tab PO DAILY 08/19/2504/07 fumarate 28 mg-folic acid 800 mcg tablet () acetaminophen 325 mg capsule 650 mg (2 x 325 mg) PO Q4 H 08/20/25 postoperative pain #90 caps ferrous sulfate 325 mg (65 mg 325 mg PO Q OTHER DAY #3 0 tabs 08/20/25 iron) tablet,delayed release ibuprofen 600 mg tablet 600 mg PO Q6H PRN postop nicolette n #90 08/20/25 tabs sennosides 8.6 mg capsule (senna) 8.6 mg PO DAILY PRN constipation 08/20/25 #30 caps PHYSICAL EXAM AT DISCHARGE Vital Signs: Vital Signs x48h Temp Pulse Resp BP Pulse Ox 08/20/25 08:00 98.8 F 85 18 93/53 L 99 08/20/25 04:00 97.7 F 80 16 100/48 L 99 LABS 08/20/25 05:12 08/19/25 10:05 FOLLOW UP Follow Up: One week with Dr. Strong, scheduled for 08/26/25 at 09:30. TIME SPENT Time Spent in Discharge (Minutes): 20 Discharge Plan Discharge Patient Disposition: Home, Self Care Condition: Serious Prescriptions: New oxycodone 5 mg tablet 5 mg PO Q6H PRN (Reason: postoperative pain) Qty: 10 0RF ondansetron 4 mg tablet,disintegrating 4 mg PO Q8H PRN (Reason: nausea and vomiting) Qty: 10 0RF oxycodone 5 mg tablet 5 mg PO Q4H PRN (Reason: pain) Qty: 20 0RF ferrous sulfate 325 mg (65 mg iron) tablet,delayed release (DR/EC) 325 mg PO Q OTHER DAY Qty: 30 0RF ibuprofen 600 mg tablet 600 mg PO Q6H PRN (Reason: postop pain) Qty: 90 0RF acetaminophen 325 mg capsule 650 mg PO Q4H Qty: 90 0RF senna 8.6 mg capsule 8.6 mg PO DAILY PRN (Reason: constipation) Qty: 30 0RF No Action PNV no.95-ferrous fumarate-FA [] 28 mg iron- 800 mcg tablet 1 tab PO DAILY Activity Restrictions/Additional Instructions: No heavy lifting (more than 15lb) for 2 weeks. Pelvic rest for 2 weeks (nothing in the vagina). Diet: Regular Print Language: Spanish Patient Instructions: Surg Dc Stand Alone Forms: PCP List Follow-up Care: Anna Strong MD [Provider Admit Priv/Credential, Obstetrics/Gynecology] Vitals documented within 30 minutes of discharge?: Yes
== END 2025-08-20 11:20 | disposition home or self-care (01) ==
LOC: ED 11:01 → SDS 12:07 → FBP 12:07 → SDS 13:07 → FBP 14:52
PROVIDERS: ADMIT Obstetrics & Gynecology; ATTEND Obstetrics & Gynecology
DX: O00.102 Left tubal pregnancy without intrauterine pregnancy; D62 Acute posthemorrhagic anemia; G89.18 Other acute postprocedural pain; K66.1 Hemoperitoneum